=== PATIENT | male | born 1965 ===

== ENCOUNTER 2018-06-10 00:16 | Inpatient (IN) | payer MEDICARE, MEDICAID ==
[2018-06-09 14:07] LABS: INR 1.13
[~2018-06-10] VITALS: Ht 172.7 cm; Wt 63.5 kg
[2018-06-10] VITALS (14 sets, daily range): BP systolic 82–120; BP diastolic 55–80
[~2018-06-10 00:16] MED LIST: CITA-145 PO; GABA-549 PO; IBUP800T37 PO; LEVI SUBQ; NOVOLOG SUBQ; OXYC10TA67 PO; PRAV20TA65 PO; ROPI0.2530 PO; TRAZ50TA34 PO
[2018-06-10] MEDS ORDERED: ceFAZolin(*) 2GM/D5W 50ML 50 ML IVPB ONE (06:00)
[2018-06-10] MEDS ORDERED: fentaNYL CITR 100 MCG/2 ML AMP ONE (06:33)
[2018-06-10] MEDS ORDERED: PROPOFOL EMUL(*) 10MG/ML 20 ML 40 ML ONE (06:34)
[2018-06-10] MEDS ORDERED: LIDOCAINE MPF 1% 5 ML VIAL ONE (06:34)
[2018-06-10] MEDS ORDERED: ONDANSETRON 4 MG/2 ML VIAL ONE (06:34)
[2018-06-10] MEDS ORDERED: KETAMINE HCL 200 MG/20 ML MDV ONE (06:37)
--- NOTE | 2018-06-10 08:34 | RADIOLOGY IMAGING REPORT ---
FACILITY: [facility] PATIENT NAME: Kian Laughlin : 1965 MR: [id number] V: [id number] EXAM DATE: ORDERING PHYSICIAN: ALINE HORTON TECHNOLOGIST: [facility] Patient: Kian Laughlin : 1965 Visit/Account:[id number] Date of Sevice: 06/10/2018 Exam type: HIP IN OR LEFT History: TOTAL HIP REPLACEMENT Comparison: None. Findings: A single slightly oblique view of the left hip demonstrates a trial left hip arthroplasty that appear s in good anatomic alignment on this single view. There is surrounding soft tissue gas on this intra operative study IMPRESSION: 1. As above Report Dictated By: Lyudmila Hay MD at 06/10/2018 8:30 AM Report E-Signed By: Lyudmila Hay MD at 06/10/2018 8:30 AM WSN:[email or web address]
[2018-06-10] MEDS ORDERED: ONDANSETRON 4 MG/2 ML VIAL IVP PRN (08:55)
[2018-06-10] MEDS ORDERED: FLUSH 10 ML SYR IVP PRN (08:55)
[2018-06-10] MEDS ORDERED: diphenhydrAMINE 25 MG CAP PO PRN (08:55)
[2018-06-10] MEDS ORDERED: PROMETHAZINE 25 MG/ML 1 ML AMP IVP PRN (08:55)
[2018-06-10] MEDS ORDERED: BISACODYL 10 MG SUPP PR PRN (08:55)
[2018-06-10] MEDS ORDERED: ZOLPIDEM TARTRATE 5 MG TAB PO PRN (08:55)
[2018-06-10] MEDS ORDERED: MAGNESIUM CITRATE 300 ML BTL PO PRN (08:55)
[2018-06-10] MEDS ORDERED: diphenhydrAMINE 50 MG/ML VIAL IVP PRN (08:55)
[2018-06-10] MEDS ORDERED: HYDROmorphone HCL 2 MG/ML SDV IVP PRN (08:55)
[2018-06-10] MEDS ORDERED: MAGNESIUM HYDROXIDE* 30ML UDCP PO PRN (08:55)
[2018-06-10] MEDS ORDERED: LR 1000 ML BAG 1000 ML IV PRN (08:55)
[2018-06-10] MEDS ORDERED: ceFAZolin(*) 1 GM VIAL 1 GM in NS(*) 0.9% 100 ML ADDVANT BAG 100 ML IVPB SCH (09:00)
--- NOTE | 2018-06-10 09:28 | RADIOLOGY IMAGING REPORT ---
FACILITY: [facility] PATIENT NAME: Kian Laughlin : 1965 MR: [id number] V: [id number] EXAM DATE: ORDERING PHYSICIAN: ALINE HOTRON TECHNOLOGIST: Location: [facility] [place] Patient: Kian Laughlin : 1965 Visit/Account:[id number] Date of Sevice: 06/10/2018 Exam type: PELVIS History: POST OP Comparison: Intraoperative left hip performed today. Findings: There is now left hip arthroplasty that appears in good anatomic alignment on this single AP view. S oft tissue gas is noted in the adjacent soft tissues on this immediate postoperative study. Incident ally noted are severe degenerative changes of the right hip joint. IMPRESSION: 1. Left hip arthroplasty appears in good anatomic alignment on this single AP view Report Dictated By: Lyudmila Hay MD at 06/10/2018 9:24 AM Report E-Signed By: Lyudmila Hay MD at 06/10/2018 9:25 AM WSN:[email or web address]
--- NOTE | 2018-06-10 09:59 | OPERATIVE REPORT 1 ---
EVENT DATE: June 10, 2018 SURGEON: Garland Mcfarlane MD ANESTHESIOLOGIST: Quincy De Jesus MD ANESTHESIA: General/LMA combines with spinal. CITY COLLECTOR: Regan Patrick PA-C PREOPERATIVE DIAGNOSIS Left hip osteoarthritis. POSTOPERATIVE DIAGNOSIS Left hip osteoarthritis. PROCEDURE PERFORMED Left total hip arthroplasty. 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 ESTIMATED BLOOD LOSS 150 mL. DRAINS None. COMPLICATIONS None. TOURNIQUET TIME Not applicable. IMPLANTS USED Ana size 54 trabecular metal cup with cluster holes with the corresponding dome hole plug and screw hole plugs as well as a standard liner for a 36.0 ceramic head and a 12.5 ML taper stem. SPECIMENS None. INDICATIONS This patient is a 52-year-old male who presented to my clinic for evaluation of left hip pain and irritation going on for some time. He had AVN going on for a continued amount of time and wanted to go ahead with a total hip replacement today, June 10, 2018. The risks and benefits were discussed with the patient and informed consent was obtained. He understands he is very young to be undergoing a total hip but he was completely worn out and failed conservative management and so, therefore, we went ahead with that and he understands he may need a revision at a later time. DESCRIPTION OF PROCEDURE The patient was brought in the operating room. He and the procedure were both verified. He was placed supine on the operating table and induced intubated by anesthesia after being given a spinal. He was then turned in the lateral decubitus position and the left leg was prepped and draped in the usual fashion and a time-out was observed, verifying correct patient and procedure. The standard incision was made over the posterior aspect of the hip and taken through the skin and subcutaneous tissue. I was unable to go through the IT band the gluteal musculature in order to gain access to the piriformis. Once I cut the piriformis, I tagged it for later repair and then cut the rest of the shorter external rotators in order to dislocate the hip. Once I made a T-shape incision within the posterior capsule and a high T-shape incision, I was able to then tag that and make it amenable for later repair. We then dislocated the hip, cleaned off the soft tissue and then cut it in the standard fashion in accordance with the Ana System. I then was able to remove the head without any difficulty and then turned attention to the acetabulum. Once in the acetabulum, I was able to remove the labrum from around the entirety of the acetabulum. I was unable to remove the ligamentum in the middle portion of the acetabulum and then commence reaming, starting with a 45 mm reamer and then going all the way up to a 53 mm reamer, which had good fit associated with it and so, therefore, a 54 mm cup was chosen. This was fit in by PressFit and had excellent stability associated within it so no need for a screw so we put in the dome hole and screw hole plugs without any difficulty and then the standard liner for a 36 head, which was accommodated by the 54 cup. I then turned attention back to the femur, where I was able to use a box cutting osteotome and then followed by the canal finder and then the lateralizing reamer in order to gain access to the femoral canal. We then commenced broaches with a [address] up to a 12.5 broach, which had excellent fit associated with it. We then trialed it with a standard head and neck and then took intraoperative x-rays. Intraoperative x-rays confirmed that we were just a touch long but we could put the stem down a little further so that was what chosen to do. We then removed all instrumentation after putting the 12.5 stem in just a little bit further and then put in the final 12.5 Ana stem with an ML taper stem without any difficulty. This was then followed by a standard 36 ceramic head, relocated the hip and it had excellent stability associated. We could get him almost to 90 degrees of internal rotation before he dislocated with the hip flexed and there were no signs of problems with leg length discrepancy or extension of the hip. This was then followed by irrigation with copious normal saline, which we had done throughout the case using a pulsatile lavage and then I closed the capsule using a heavy Ethibond suture. This was then followed by Ethibond suturing through drill holes of the posterior aspect of the femur for the piriformis and then reattaching the piriformis to the posterior aspect of the femur. I then irrigated again, put in the pain cocktail and then was able to close the IT band with a #2 Quill. This was then followed by 2-0 Vicryl in the fat layer and then a 2-0 Stratafix in the subcutaneous layer and a subcuticular 4-0 running Monocryl. The wound was then dressed with Steri-strips, gauze, 4x4's and a soft dressing, put in a hip wrap and then the patient was awakened, extubated and transferred to PACU in stable condition. RAYNA
[2018-06-10] MEDS ORDERED: CELECOXIB 200 MG CAP PO ONE (10:15)
[2018-06-10] MEDS ORDERED: NORMOSOL R SOLN(*) 1000 ML BAG 1,000 ML IV PRN (10:15)
[2018-06-10] MEDS ORDERED: PREGABALIN 150 MG CAPSULE PO ONE (10:15)
[2018-06-10] MEDS ORDERED: ACETAMINOPHEN 500 MG TAB PO ONE (10:15)
[2018-06-10] MEDS ORDERED: MIDAZOLAM 2 MG/2 ML VIAL IVP PRN (10:15)
[2018-06-10] MEDS ORDERED: ROPIVACAINE/EPI/CLONIDINE/KET 50 ML SYRINGE INJ ONE (10:15)
[2018-06-10] MEDS ORDERED: ceFAZolin(*) 1 GM VIAL 1 GM in NS(*) 0.9% 100 ML ADDVANT BAG 100 ML IVPB ONE (10:15)
[2018-06-10] MEDS ORDERED: BACITRACIN 50000 UNIT/VIAL 100,000 UNIT in NS 0.9% 3000 ML IRRIGATION BAG 3,000 ML IR ONE (10:15)
[2018-06-10] MEDS ORDERED: LIDOCAINE/SOD BICARB 8.4% SYR ID ONE (10:15)
[2018-06-10] MEDS ORDERED: FAMOTIDINE 20 MG TAB PO ONE (10:15)
--- NOTE | 2018-06-10 11:52 | Hospitalist Consultation ---
History of Present Illness Requesting Physician Dr. Mcfarlane Reason for Consult Medical Management Chief Complaint s/p left hip replacement History of Present Illness He was admitted s/p left hip replacement. It is reported the surgery went well and without complication. History Problems: (1) Type 2 diabetes mellitus Status: Chronic (2) Hyperlipidemia Status: Chronic (3) Depression Status: Chronic (4) RLS (restless legs syndrome) Status: Chronic (5) History of DVT (deep vein thrombosis) Status: Chronic (6) Alcoholic cirrhosis of liver Status: Chronic Home Meds Reported Medications Insulin Aspart (NOVOLOG) 100 Unit/Ml Soln, 100 UNIT SUBQ DIRECTED SLIDING SCALE NONE WITH BLOOD SUGARGS <150 06/05/18 Insulin Detemir (LEVEMIR) 100 Unit/Ml Injs, 22 UNIT SUBQ QHS 06/05/18 Gabapentin (GABAPENTIN) 300 Mg Capsule, 400 MG PO BID, CAPSULE 06/05/18 Ibuprofen (IBUPROFEN) 800 Mg Tablet, 1 TAB PO Q8H PRN for PAIN, TAB 06/05/18 Citalopram Hydrobromide (CITALOPRAM HBR) 20 Mg Tablet, 10 MG PO QDAY, #5 TAB 06/05/18 Pravastatin Sodium (PRAVACHOL) 20 Mg Tablet, 20 MG PO QDAY, TAB 06/05/18 Trazodone Hcl (TRAZODONE HCL) 50 Mg Tablet, 50 MG PO QHS 06/05/18 Ropinirole Hcl (ROPINIROLE HCL) 0.25 Mg Tablet, 2 TAB PO QHS 06/05/18 Oxycodone Hcl 10 Mg Tab (OXYCODONE HCL 10 MG TAB) 10 Mg Tablet, 10 MG PO TID, TAB 06/05/18 Allergies: Coded Allergies: No Known Drug Allergies (Unverified , 06/04/18) Patient History: FH: COPD (chronic obstructive pulmonary disease) FATHER, FH: PA (myocardial infarction) FATHER, FH: breast cancer MOTHER Hx Smoking: No Smoking Status: Never Smoker Caffeine Intake: Tea Caffeine/Cups Per Day: GLASS DAILY Hx Alcohol Use: Yes (STOPPED 2011) Hx Substance Use Disorder: No Social Drug Use: Never History of IV Drug Use: No Review of Systems All Systems Reviewed/Normal: Yes, Except as Noted Exam Vital Signs Vital Signs Date Time Temp Pulse Resp B/P (MAP) Pulse Ox O2 Delivery O2 Flow Rate FiO2 06/10/18 10:51 97.7 60 16 99/58 (72) 96 Nasal Cannula 2.0 General Appearance: Alert, Awake, No Acute Distress, Afebrile Neuro: No Gross deficits Cardiovascular: Regular Rate and Rhythm Respiratory: No Respiratory Distress, Clear to Auscultation Psych: Alert & Oriented X3, Appropriate Mood & Affect Assessment and Plan Problems: (1) Status post left hip replacement Status: Acute Assessment & Plan: Followed by Dr. Mcfarlane. He will be placed on Xarelto, secondary to DVT in 2012. (2) Type 2 diabetes mellitus Status: Chronic Assessment & Plan: Insulin dependent. He is on chronic treatment with Levemir at night and Novolog sliding scale. He will be placed on SS insulin #2, AC/HS blood glucose checks, ADA diet. He will continue Levemir. (3) Hyperlipidemia Status: Chronic Assessment & Plan: He is on chronic treatment with Pravastatin. Continue. (4) Depression Status: Chronic Assessment & Plan: He is on chronic treatment with Citalopram. Continue. (5) RLS (restless legs syndrome) Status: Chronic Assessment & Plan: He is on chronic treatment with Requip. Continue. (6) Alcoholic cirrhosis of liver Status: Chronic Assessment & Plan: Quit drinking in 2011. Liver function normal pre- operatively. (7) History of DVT (deep vein thrombosis) Status: Chronic Assessment & Plan: In 2012. No PE. Spontaneous. Venous Thromboembolism Antithrombotics Is Pt On Any Antithrombotics?: Yes Exam Sepsis Risk: No Definite Risk DAYAMI SANDERS ARMED CUST[employer] PROTECTION OFFICER Jun 10, 2018 11:52
[2018-06-10] MEDS ORDERED: NS(*) 0.9% 250 ML BAG 250 ML ONE (14:02)
[2018-06-10] MEDS: ceFAZolin(*) 1 GM VIAL 1 GM in NS(*) 0.9% 100 ML ADDVANT BAG 100 ML IVPB SCH ×2 (14:03→21:58)
--- NOTE | 2018-06-10 17:00 | NUR ---
Physical Therapy Impression PT eval completed. Pt is able to verbalize all VIDYA precautions. Pt notes that he has been up to/from BR with nursing assistance twice and feels that pain is currently well managed. Pt tolerated ther ex x 10 reps each with Min assist required for HS, SAQ, SLR and hip abduction. Pt agreeable to ambulate in hallway tomorrow. Physical Therapy Goals 1. Pt to be modified indep with all bed mobility and supine to/from sit transfers 2. Pt to be modified indep with sit to/from stand transfers 3. Pt to ambulate with least restrictive device x 150' with modified indep 4. Pt to adams up/down platform step x 2 with least restrictive device and SBA/Modified indep Patient's Goals
[2018-06-10] MEDS: INSULIN HUM LISPRO 100 UN/ML 3 ML VIAL SUBQ PRN ×2 (17:13→21:25)
[2018-06-10] MEDS ORDERED: traZODone HCL 50 MG TAB PO SCH (21:00)
[2018-06-10] MEDS ORDERED: INSULIN DETEMIR 100 UN/ML VIAL SUBQ SCH (21:00)
[2018-06-10] MEDS: GABAPENTIN 100 MG CAP PO SCH (21:23)
[2018-06-10] MEDS: GABAPENTIN 300 MG CAP PO SCH (21:23)
[2018-06-11 03:20] VITALS: BP 91/59
[2018-06-11] MEDS: ceFAZolin(*) 1 GM VIAL 1 GM in NS(*) 0.9% 100 ML ADDVANT BAG 100 ML IVPB SCH (05:47)
[2018-06-11 06:00] VITALS: BP 95/55
[2018-06-11] MEDS: INSULIN HUM LISPRO 100 UN/ML 3 ML VIAL SUBQ PRN ×2 (07:29→11:47)
[2018-06-11] MEDS ORDERED: RIVAROXABAN 10 MG TAB PO SCH (09:00)
[2018-06-11] MEDS ORDERED: PRAVASTATIN SOD 20 MG TAB PO SCH (09:00)
[2018-06-11] MEDS ORDERED: CITALOPRAM HYDROBROM 20 MG TAB PO SCH ×2 (09:00→10:04)
[2018-06-11] MEDS ORDERED: OXYC-854 PO (09:45)
[2018-06-11] MEDS: GABAPENTIN 300 MG CAP PO SCH (09:49)
[2018-06-11] MEDS: GABAPENTIN 100 MG CAP PO SCH (09:49)
--- NOTE | 2018-06-11 09:49 | Hospitalist Progress Note ---
Subjective Progress Notes Subjective He was admitted after hip replacement. He has no complaints this morning. He had no acute events overnight. He wants to go home today. Patient Complains of: Cardiovascular: No: Chest Pain Respiratory: No: Shortness of Breath Physical Exam Vital Signs Date Time Temp Pulse Resp B/P (MAP) Pulse Ox O2 Delivery O2 Flow Rate FiO2 06/11/18 06:00 68 16 95/55 (68) 95 Room Air 06/10/18 23:21 98.7 06/10/18 10:55 2.0 Intake and Output 06/11/18 07:00 Intake Total 3681 ml Output Total 200 ml Balance 3481 ml Intake Oral 1581 ml IV Total 2100 ml Output Estimated Blood Loss 200 ml # Voids 7 General Appearance: Alert, Awake, No Acute Distress, Afebrile Neuro: No Gross deficits Cardiovascular: Regular Rate and Rhythm Respiratory: No Respiratory Distress, Clear to Auscultation Psych: Alert & Oriented X3, Appropriate Mood & Affect Result Diagram: 06/11/18 0544 Assessment and Plan Problems: (1) Status post left hip replacement Status: Acute Assessment & Plan: Followed by Dr. Mcfarlane. He will be placed on Xarelto, secondary to DVT in 2012. He already was given prescription for Xarelto by per Dr. Mcfarlane. (2) Type 2 diabetes mellitus Status: Chronic Assessment & Plan: Insulin dependent. He is on chronic treatment with Levemir at night and Novolog sliding scale. He was placed on SS insulin #2, AC/HS blood glucose checks, ADA diet. He will continue Levemir. (3) Hyperlipidemia Status: Chronic Assessment & Plan: He is on chronic treatment with Pravastatin. Continue. (4) Depression Status: Chronic Assessment & Plan: He is on chronic treatment with Citalopram. Continue. (5) RLS (restless legs syndrome) Status: Chronic Assessment & Plan: He is on chronic treatment with Requip. Continue. (6) Alcoholic cirrhosis of liver Status: Chronic Assessment & Plan: Quit drinking in 2011. Liver function normal pre- operatively. (7) History of DVT (deep vein thrombosis) Status: Chronic Assessment & Plan: In 2012. No PE. Spontaneous. Exam Sepsis Risk: No Definite Risk DAYAMI SANDERS Jun 11, 2018 09:49
[2018-06-11] MEDS ORDERED: RIV10 PO (10:22)
--- NOTE | 2018-06-11 10:58 | NUR ---
Physical Therapy Impression PT goals met; pt ready to d/c from a mobility stand point. Physical Therapy Goals 1. Pt to be modified indep with all bed mobility and supine to/from sit transfers 2. Pt to be modified indep with sit to/from stand transfers 3. Pt to ambulate with least restrictive device x 150' with modified indep 4. Pt to adams up/down platform step x 2 with least restrictive device and SBA/Modified indep Patient's Goals
[2018-06-11] MEDS ORDERED: INSULIN DETEMIR 100 U/ML 3 ML PEN SUBQ SCH (21:00)
[2018-06-12] MEDS ORDERED: CITALOPRAM HYDROBROM 20 MG TAB PO SCH (09:00)
[2018-06-20] MEDS ORDERED: cloNIDine EPIDUR INJ 100MCG/ML 40 MCG, ROPIVACAINE 0.5% 20 ML VIAL 25 ML, EPINEPHrine H... INJ ONE (10:15)
== END 2018-06-11 12:37 | disposition home or self-care (01) | DRG 470 ==
LOC: OR 00:16 → MED 10:48
PROVIDERS: ADMIT Orthopaedic Surgery; ATTEND Orthopaedic Surgery
PROC: 0SRB02Z Replacement of Left Hip Joint with Metal on Polyethylene Synthetic Substitute, Open Approach (ICD-10-PCS; principal; 2018-06-10 06:58)
DX: M16.12 Unilateral primary osteoarthritis, left hip (principal); K21.9 Gastro-esophageal reflux disease without esophagitis; K70.30 Alcoholic cirrhosis of liver without ascites; G89.29 Other chronic pain; G25.81 Restless legs syndrome; E11.40 Type 2 diabetes mellitus with diabetic neuropathy, unspecified; F32.9 Major depressive disorder, single episode, unspecified; E78.5 Hyperlipidemia, unspecified; Z79.4 Long term (current) use of insulin; Z79.84 Long term (current) use of oral hypoglycemic drugs; Z86.718 Personal history of other venous thrombosis and embolism
CPT/HCPCS: 36415; 36416; 72170; 82948; 85014; 85018; 85610; 86850; 86900; 86901; 97161; 97165; C1713; C1776; J0690; J1815; J2001; J2250; J2405; J2704; J3010; J3490; J7050

== ENCOUNTER 2018-12-09 00:36 | Inpatient (IN) | payer MEDICARE, MEDICAID ==
[2018-12-08 16:24] LABS: INR 1.11
[2018-12-09] VITALS (12 sets, daily range): BP systolic 109–140; BP diastolic 58–80
[~2018-12-09] VITALS: Ht 172.7 cm; Wt 62.6 kg
[~2018-12-09 00:36] MED LIST changes: +CYCL10TA29 PO; +METF-450 PO; +MILK1CAP4 PO; +OXYC-854 PO; +RIV10 PO; -TRAZ50TA34 PO; +TRAZ50TA52 PO; +VITA100020 PO; +[UNRECOGNIZED DRUG - CODE]
[2018-12-09] MEDS ORDERED: FAMOTIDINE 20 MG TAB PO ONE (09:05)
[2018-12-09] MEDS ORDERED: fentaNYL CITR 100 MCG/2 ML AMP ONE (09:30)
[2018-12-09] MEDS ORDERED: LIDOCAINE MPF 1% 5 ML VIAL ONE (09:33)
[2018-12-09] MEDS ORDERED: PROPOFOL EMUL(*) 10MG/ML 20 ML 20 ML ONE (09:33)
[2018-12-09] MEDS ORDERED: ONDANSETRON 4 MG/2 ML VIAL ONE (09:33)
[2018-12-09] MEDS ORDERED: CELECOXIB 200 MG CAP PO ONE (11:00)
[2018-12-09] MEDS ORDERED: MIDAZOLAM 2 MG/2 ML VIAL IVP PRN (11:00)
[2018-12-09] MEDS ORDERED: TRANEXAMIC AC 1000 MG/10ML SDV 1,000 MG in DEXTROSE 5% 50 ML BAG 50 ML IV ONE (11:00)
[2018-12-09] MEDS ORDERED: ROPIVACAINE/EPI/CLONIDINE/KET 50 ML SYRINGE INJ ONE (11:00)
[2018-12-09] MEDS ORDERED: NORMOSOL R SOLN(*) 1000 ML BAG 1,000 ML IV PRN (11:00)
[2018-12-09] MEDS ORDERED: ceFAZolin(*) 2GM/D5W 50ML 50 ML IVPB ONE (11:00)
[2018-12-09] MEDS ORDERED: LIDOCAINE/SOD BICARB 8.4% SYR ID ONE (11:00)
[2018-12-09] MEDS ORDERED: BACITRACIN 50000 UNIT/VIAL 100,000 UNIT in NS 0.9% 3000 ML IRRIGATION BAG 3,000 ML IR ONE (11:00)
[2018-12-09] MEDS ORDERED: ACETAMINOPHEN 500 MG TAB PO ONE (11:00)
[2018-12-09] MEDS ORDERED: PROPOFOL EMUL(*) 10MG/ML 20 ML 60 ML ONE (11:49)
[2018-12-09] MEDS ORDERED: KETAMINE HCL 200 MG/20 ML MDV ONE (11:50)
[2018-12-09] MEDS ORDERED: ePHEDrine 25 MG/5 ML DISP.SYR IVP ONE (12:43)
[2018-12-09] MEDS ORDERED: MAGNESIUM CITRATE 300 ML BTL PO PRN (14:10)
[2018-12-09] MEDS ORDERED: diphenhydrAMINE 25 MG CAP PO PRN (14:10)
[2018-12-09] MEDS ORDERED: ONDANSETRON 4 MG/2 ML VIAL IVP PRN (14:10)
[2018-12-09] MEDS ORDERED: BISACODYL 10 MG SUPP PR PRN (14:10)
[2018-12-09] MEDS ORDERED: PROMETHAZINE 25 MG/ML 1 ML AMP IVP PRN (14:10)
[2018-12-09] MEDS ORDERED: MAGNESIUM HYDROXIDE* 30ML UDCP PO PRN (14:10)
[2018-12-09] MEDS ORDERED: FLUSH 10 ML SYR IVP PRN (14:10)
[2018-12-09] MEDS ORDERED: ZOLPIDEM TARTRATE 5 MG TAB PO PRN (14:10)
[2018-12-09] MEDS ORDERED: diphenhydrAMINE 50 MG/ML VIAL IVP PRN (14:10)
--- NOTE | 2018-12-09 14:30 | OPERATIVE REPORT 1 ---
EVENT DATE: December 09, 2018 SURGEON: Garland Mcfarlane MD ANESTHESIOLOGIST: Quincy De Jesus MD ANESTHESIA: General plus spinal. WELFARE INVESTIGATOR: Regan Patrick PA-C PREOPERATIVE DIAGNOSIS Right hip osteoarthritis. POSTOPERATIVE DIAGNOSIS Right hip osteoarthritis. PROCEDURE PERFORMED Right total hip arthroplasty. FINDINGS The patient had a significant amount of arthritic changes associated with his hip but was amenable for a total hip replacement. ESTIMATED BLOOD LOSS 100 mL. DRAINS None. COMPLICATIONS None. TOURNIQUET TIME Nonapplicable. IMPLANTS USED Ana Trabecular Metal size 54 mm cup with a cluster hole shell with a neutral liner and then a 12.5 standard stem and a 36+ 0 head. We also put in 3 screw hole plugs and dome hole plug. SPECIMENS None. INDICATIONS AND HISTORY This patient is a 53-year-old male who presented to my clinic for evaluation of bilateral hip arthritis. We had replaced the left one previously and he had really good results associated with it and he wanted to go ahead with the right hip replacement today 12/09/2018. We went over the risks and benefits associated with it and informed consent was obtained at the last clinic visit. We talked about leg length discrepancy, nerve injury and dislocation specifically and he understood from the last visit and informed consent was obtained at the last clinic visit. DESCRIPTION OF PROCEDURE As the patient was brought in the operating room, he and the procedure were both verified. He was placed in the sitting position and then given a spinal by Anesthesia, induced and intubated and turned into the lateral decubitus position. The right hip was prepped and draped in the usual fascia and a timeout was observed verifying the correct patient and procedure. After making a small curvilinear incision over the posterior lateral aspect of the hip, it was taken through the skin and subcutaneous tissue and then I was able to go through the IT band as well as the gluteal musculature. Once I was able to spread this apart, I then got underneath the area where the greater trochanter was and then was able to identify the piriformis and the short external rotators. After cutting the piriformis and tagging it for later repair, I then cut some of the short external rotators. I was then able to get down to the capsule. I made a small T-incision in the capsule and then tagged that for later repair. I then was able to dislocate the femur without any major difficulty and then cut the femoral neck without any major issues. Once I was able to remove the femoral head, there was a significant amount of cartilage damage, fraying and irritation associated with this, and so therefore we then went into the acetabulum, put retractors around the acetabulum and then I was able to irrigate with copious amounts of saline. I then removed the rest of the ligamentum teres in this area and then was able to remove the rest of the labrum around it 360-degrees and then commenced reaming. We started with a 49 mm reamer and got up to a 53 mm reamer which had good rim fit and excellent opposition to it, so therefore we put in a 54 cluster hole Trabecular Metal cup made by Ana without any major difficulty. Made sure it was down, put in the dome hole plug and the three screw hole plugs and then put in the liner. I then irrigated with copious amounts of saline which we had throughout the case and made sure we were in good alignment. I then turned attention to the femur where I was able to put a posterior retractor on this and then used the box-cutting osteotome, followed by the canal finder and then followed by lateralizing reamer. We then broached from a [address] up to a 12.5 which had adequate fix. The sizes of the stem and cup were actually the exact same as the contralateral side at this point. He had good fill associated with this and so therefore we then put on the standard head and neck, relocated the hip, put it through a range of motion and saw that it was very stable and had good range of motion. Therefore, we took intraoperative x- rays, showed that the lengths were the same and that the cup was in good position. I then dislocated this, removed the trial components and then put in the final components without any difficulty and made sure that they were good through a standard range of motion. I then closed the capsule using heavy Ethibond stitch. This was then followed by drill holes through the posterior aspect of the femur and reattaching the piriformis over a bony bridge. I then irrigated again, and then closed the gluteal musculature as well as the IT band after we had soaked the wound with Irrisept a couple of times. This was then followed by closure of the skin with a 2-0 Stratafix and then followed by a 4-0 Monocryl interrupted subcuticular fashion. I then dressed it with Steri-Strips, gauze 4 x 4s and a soft dressing. The patient was then turned on his back, awakened and extubated and transferred to the PACU in stable condition. RAYNA
--- NOTE | 2018-12-09 14:52 | RADIOLOGY IMAGING REPORT ---
FACILITY: [facility] PATIENT NAME: Kian Laughlin : 1965 MR: [id number] V: [id number] EXAM DATE: ORDERING PHYSICIAN: ALINE HORTON TECHNOLOGIST: Location: [facility] Patient: Kian Laughlin : 1965 Visit/Account:[id number] Date of Sevice: 12/09/2018 Exam type: PELVIS History: CONFIRM PLACEMENT Comparison: June 10, 2018. Findings: There is a new right hip arthroplasty that appears in good anatomic alignment on this single AP view. Previously existing left hip arthroplasty remains unchanged. IMPRESSION: 1. There bilateral hip arthroplasties that appear in good anatomic alignment on this single AP view Report Dictated By: Lyudmila Hay MD at 12/09/2018 2:44 PM Report E-Signed By: Lyudmila Hay MD at 12/09/2018 2:45 PM WSN:[email or web address]
[2018-12-09] MEDS: LR 1000 ML BAG 1000 ML IV PRN (14:59)
--- NOTE | 2018-12-09 15:04 | RADIOLOGY IMAGING REPORT ---
FACILITY: [facility] PATIENT NAME: Kian Laughlin : 1965 MR: [id number] V: [id number] EXAM DATE: ORDERING PHYSICIAN: ALINE HORTON TECHNOLOGIST: Location: [facility] Patient: Kian Laughlin : 1965 Visit/Account:[id number] Date of Sevice: 12/09/2018 HIP IN OR RIGHT HISTORY: Right hip arthroplasty ADDITIONAL HISTORY: None. COMPARISON: Pelvis film 06/10/2018 FINDINGS: AP view of the pelvis was obtained intraoperatively. Since the prior study, patient has undergone pl acement of a right hip prosthesis with anatomic alignment of the components. There is no fracture id entified. There is no evidence of loosening. Visualized left hip prosthesis is in anatomic alignment. IMPRESSION: Placement of a right hip prosthesis with anatomic alignment of the components Report Dictated By: Mary Ann Franks MD at 12/09/2018 2:06 PM Report E-Signed By: Mary Ann Franks MD at 12/09/2018 2:58 PM WSN:[email or web address]
--- NOTE | 2018-12-09 16:16 | NUR ---
Physical Therapy Impression PT eval complete. PT instruction for supine LE ther-ex with emphasis on good quad contraction, pt unable to complete ankle pumps d/t effects of spinal. Pt not safe for further mobility at this time, encouraged him to mobilize with nursing this evening. Anticipate d/c with OP PT. Physical Therapy Goals 1: Pt to complete bed mobility with Jaja 2: Pt to complete transfers with Jaja and RW 3: Pt to ambulate 150' with Jaja and RW 4: Pt to asc/desc 2 stairs with SBA 5: Pt to adhere to precautions within functional mobility. Patient's Goals
--- NOTE | 2018-12-09 16:32 | Hospitalist Consultation ---
History of Present Illness Requesting Physician Dr. Mcfarlane Reason for Consult Medical Management Chief Complaint s/p right hip replacement History of Present Illness He was admitted s/p right hip replacement. It is reported the surgery went well and without complication. History Problems: (1) Type 2 diabetes mellitus Status: Chronic (2) Hyperlipidemia Status: Chronic (3) Depression Status: Chronic (4) Alcoholic cirrhosis of liver Status: Chronic (5) RLS (restless legs syndrome) Status: Chronic (6) History of DVT (deep vein thrombosis) Status: Chronic Home Meds Reported Medications Vitamin A Acetate (Vitamin A) 10,000 Unit Tab.subl, PO QDAY 12/01/18 Milk Thistle Seed Extract (MILK THISTLE) 140 Mg Capsule, 140 MG PO QDAY, CAPSULE 12/01/18 Adapalene (Adapalene) 0.1 % Med..swab 12/01/18 Cyclobenzaprine Hcl (CYCLOBENZAPRINE HCL) 10 Mg Tablet, 10 MG PO TID, #9 TAB 12/01/18 Metformin Hcl (METFORMIN HCL) 500 Mg Tablet, 1.5 TAB PO BID, TAB 12/01/18 Oxycodone Hcl/Acet 5/325 Mg (ENDOCET 5-325 TABLET) 1 Each Tablet, 1 EACH PO Q4H PRN for PAIN, TAB 06/11/18 Gabapentin (GABAPENTIN) 300 Mg Capsule, 800 MG PO BID, CAPSULE 06/05/18 Citalopram Hydrobromide (CITALOPRAM HBR) 20 Mg Tablet, 30 MG PO DAILY, #5 TAB 06/05/18 Pravastatin Sodium (PRAVACHOL) 20 Mg Tablet, 20 MG PO QDAY, TAB 06/05/18 Trazodone Hcl (TRAZODONE HCL) 50 Mg Tablet, 50 MG PO QHS 06/05/18 Ropinirole Hcl (ROPINIROLE HCL) 0.25 Mg Tablet, 2 TAB PO BID 06/05/18 Allergies: Coded Allergies: No Known Drug Allergies (Unverified , 06/04/18) Patient History: FH: COPD (chronic obstructive pulmonary disease) FATHER, FH: SC (myocardial infarction) FATHER, FH: breast cancer MOTHER Hx Smoking: No Smoking Status: Never Smoker Exposure to Second Hand Smoke?: No Caffeine Intake: Coffee, Tea Caffeine/Cups Per Day: 1 CPD Hx Alcohol Use: No (STOPPED 2011) Hx Substance Use Disorder: No Social Drug Use: Never History of IV Drug Use: No Review of Systems All Systems Reviewed/Normal: Yes, Except as Noted Exam Vital Signs Vital Signs Date Time Temp Pulse Resp B/P (MAP) Pulse Ox O2 Delivery O2 Flow Rate FiO2 12/09/18 16:15 65 120/64 (82) 96 12/09/18 15:49 Nasal Cannula 2.0 12/09/18 15:49 97.6 12 General Appearance: Alert, Awake, No Acute Distress, Afebrile Cardiovascular: Regular Rate and Rhythm Respiratory: No Respiratory Distress, Clear to Auscultation Psych: Alert & Oriented X3, Appropriate Mood & Affect Assessment and Plan Problems: (1) Status post right hip replacement Status: Acute Assessment & Plan: Followed by Dr. Mcfarlane. He will be placed on Xarelto, secondary to DVT in 2012. (2) Type 2 diabetes mellitus Status: Chronic Assessment & Plan: Continue chronic Metformin. He will be placed on SS insulin #2, AC/HS blood glucose checks, ADA diet. (3) Hyperlipidemia Status: Chronic Assessment & Plan: He is on chronic treatment with Pravastatin. Continue. (4) Depression Status: Chronic Assessment & Plan: He is on chronic treatment with Citalopram. Continue. (5) RLS (restless legs syndrome) Status: Chronic Assessment & Plan: He is on chronic treatment with Requip. Continue. (6) Alcoholic cirrhosis of liver Status: Chronic Assessment & Plan: Quit drinking in 2011. Liver function normal pre- operatively. (7) History of DVT (deep vein thrombosis) Status: Chronic Assessment & Plan: In 2012. No PE. Spontaneous. Venous Thromboembolism Antithrombotics Is Pt On Any Antithrombotics?: Yes Exam Sepsis Risk: No Definite Risk DAYAMI SANDERS ART PSYCHOTHERAPIST Dec 09, 2018 16:32
[2018-12-09] MEDS ORDERED: OMEP-126 PO (16:57)
[2018-12-09] MEDS ORDERED: GABA-551 PO (16:57)
[2018-12-09] MEDS ORDERED: INSULIN HUM LISPRO 100 UN/ML 3 ML VIAL SUBQ PRN (17:00)
[2018-12-09] MEDS: oxyCODON/ACET (*)5/325MG (CII) 1 TAB TAB PO PRN ×2 (18:16→22:29)
[2018-12-09] MEDS: HYDROmorphone HCL 2 MG/ML SDV IVP PRN ×2 (19:21→21:45)
[2018-12-09] MEDS ORDERED: ceFAZolin(*) 1 GM VIAL 1 GM in NS(*) 0.9% 100 ML MINI-BAG 100 ML IVPB SCH (20:00)
[2018-12-09] MEDS ORDERED: ceFAZolin(*) 1 GM VIAL 1 GM in NS(*) 0.9% 100 ML MINI-BAG 100 ML IV SCH (20:00)
[2018-12-09] MEDS: ceFAZolin 1 GM VIAL IVP SCH (20:38)
[2018-12-09] MEDS: GABAPENTIN(*) 300 MG CAP 300 MG, GABAPENTIN(*) 100 MG CAP 100 MG PO SCH (20:56)
[2018-12-09] MEDS ORDERED: NON-FORMULARY MEDICATION MISCELL (Gabapentin 400 MG) PO SCH (21:00)
[2018-12-10] VITALS: BP 94/56
[2018-12-10] MEDS: LR 1000 ML BAG 1000 ML IV PRN (00:25)
[2018-12-10 01:00] VITALS: BP 94/56
[2018-12-10 02:00] VITALS: BP 102/77
[2018-12-10 03:00] VITALS: BP 112/61
[2018-12-10] MEDS: oxyCODON/ACET (*)5/325MG (CII) 1 TAB TAB PO PRN ×2 (03:07→10:14)
[2018-12-10] MEDS: ceFAZolin 1 GM VIAL IVP SCH (03:22)
[2018-12-10 05:00] VITALS: BP 95/56
[2018-12-10 07:16] VITALS: BP 102/53
[2018-12-10] MEDS ORDERED: OXYC-865 PO (08:26)
[2018-12-10] MEDS ORDERED: PANTOPRAZOLE SOD 40 MG TABEC PO SCH (09:00)
[2018-12-10] MEDS ORDERED: RIVAROXABAN 10 MG TAB PO SCH (09:00)
[2018-12-10] MEDS ORDERED: PRAVASTATIN SOD 20 MG TAB PO SCH (09:00)
[2018-12-10] MEDS ORDERED: metFORMIN HCL 500 MG TAB PO SCH (09:00)
[2018-12-10] MEDS ORDERED: CITALOPRAM HYDROBROM 20 MG TAB PO SCH (09:00)
[2018-12-10] MEDS: GABAPENTIN(*) 300 MG CAP 300 MG, GABAPENTIN(*) 100 MG CAP 100 MG PO SCH (09:08)
--- NOTE | 2018-12-10 10:14 | Hospitalist Progress Note ---
Subjective Progress Notes Subjective He was admitted s/p hip replacement. He had no acute events overnight. Patient Complains of: Cardiovascular: No: Chest Pain Respiratory: No: Shortness of Breath Physical Exam Vital Signs Date Time Temp Pulse Resp B/P (MAP) Pulse Ox O2 Delivery O2 Flow Rate FiO2 12/10/18 08:32 85 12/10/18 07:16 97.9 76 17 102/53 (69) Room Air 12/10/18 01:00 0.5 Intake and Output 12/10/18 07:02 Intake Total 4025 ml Output Total 150 ml Balance 3875 ml Intake Oral 125 ml IV Total 2100 ml Other 1800 ml Output Estimated Blood Loss 150 ml # Voids 4 General Appearance: Alert, Awake, No Acute Distress, Afebrile Neuro: No Gross deficits Cardiovascular: Regular Rate and Rhythm Respiratory: No Respiratory Distress, Clear to Auscultation GI: Soft and Non-Tender Psych: Alert & Oriented X3, Appropriate Mood & Affect Result Diagram: 12/10/18 5585 Assessment and Plan Problems: (1) Status post right hip replacement Status: Acute Assessment & Plan: Followed by Dr. Mcfarlane. He will be placed on Xarelto, secondary to DVT in 2012. (2) Type 2 diabetes mellitus Status: Chronic Assessment & Plan: Continue chronic Metformin. He will be placed on SS insulin #2, AC/HS blood glucose checks, ADA diet. (3) Hyperlipidemia Status: Chronic Assessment & Plan: He is on chronic treatment with Pravastatin. Continue. (4) Depression Status: Chronic Assessment & Plan: He is on chronic treatment with Citalopram. Continue. (5) RLS (restless legs syndrome) Status: Chronic Assessment & Plan: He is on chronic treatment with Requip. Continue. (6) Alcoholic cirrhosis of liver Status: Chronic Assessment & Plan: Quit drinking in 2011. Liver function normal pre- operatively. (7) History of DVT (deep vein thrombosis) Status: Chronic Assessment & Plan: In 2012. No PE. Spontaneous. (8) Hypoxia Status: Acute Assessment & Plan: Recommend he go home with oxygen 0.5L to wear at nighttime. He will follow up with PCP in 2 weeks regarding oxygen use. Exam Sepsis Risk: No Definite Risk DAYAMI SANDERS [employer] Dec 10, 2018 10:14
[2018-12-10] MEDS ORDERED: RIV10 PO (10:17)
--- NOTE | 2018-12-10 15:00 | NUR ---
Physical Therapy Impression Pt received ambulating back from bathroom safety and in compliance with hip precautions. Pt voices no mobility concerns and states he remembers his hip precautions from his previous VIDYA. Pt declines any mobility training at this time. Pt demonstrates safety with ambulation and is safe to DC when medically appropriate. Physical Therapy Goals 1: Pt to complete bed mobility with Jaja 2: Pt to complete transfers with Jaja and RW 3: Pt to ambulate 150' with Jaja and RW 4: Pt to asc/desc 2 stairs with SBA 5: Pt to adhere to precautions within functional mobility. Patient's Goals
== END 2018-12-10 12:15 | disposition home or self-care (01) | DRG 470 ==
LOC: OR 00:36 → MED 15:43 → OBSVTOIN 15:43
PROVIDERS: ADMIT Orthopaedic Surgery; ATTEND Orthopaedic Surgery
PROC: 0SR901Z Replacement of Right Hip Joint with Metal Synthetic Substitute, Open Approach (ICD-10-PCS; principal; 2018-12-09 12:04)
DX: M16.11 Unilateral primary osteoarthritis, right hip (principal); E11.9 Type 2 diabetes mellitus without complications; E78.5 Hyperlipidemia, unspecified; F32.9 Major depressive disorder, single episode, unspecified; K70.30 Alcoholic cirrhosis of liver without ascites; G25.81 Restless legs syndrome; Z86.718 Personal history of other venous thrombosis and embolism; Z79.84 Long term (current) use of oral hypoglycemic drugs
CPT/HCPCS: 36415; 36416; 72170; 82948; 84450; 84460; 85014; 85018; 85610; 86850; 86900; 86901; 96372; 97161; C1713; C1776; J0690; J1170; J2001; J2250; J2405; J2704; J3010; J3490; J7120